=== PATIENT | female | born 1980 | race Caucasian/White ===

== ENCOUNTER → 2016-06-17 | Outpatient (CLI) | payer BC ==
--- NOTE | 2016-06-17 14:13 | DI ---
XR FOOT COMPLETE MIN 3VW WB,06/17/2016 12:54 PM: Clinical History: Left foot injury. Previous Exam: None at this facility. Findings: 3 views of the left foot are obtained, and demonstrate anatomic alignment without fractures. The surr ounding soft tissues are unremarkable. Impression: Normal left foot.
== END ==
LOC: MOB LAB 12:56
PROVIDERS: ATTEND Physician Assistant Medical
DX: M79.672 Pain in left foot (principal); S92.902A Unspecified fracture of left foot, initial encounter for closed fracture; W17.89XA Other fall from one level to another, initial encounter; Y93.02 Activity, running; Y92.480 Sidewalk as the place of occurrence of the external cause
CPT/HCPCS: 73630

== ENCOUNTER → 2016-06-24 | Outpatient (CLI) | payer BC ==
--- NOTE | 2016-06-24 10:05 | DI ---
XR FOOT COMPLETE MIN 3VW WB,06/24/2016 9:16 AM: Clinical History: Left foot pain Previous Exam: June 17, 2016 Findings: 3 views of the left foot are obtained, and demonstrate anatomic alignment without fractures. There ar e minimal degenerative changes of the left first metatarsophalangeal joint. The surrounding soft tissues are unremarkable. Impression: If there is concern for stress changes, consider bone scan of the left foot as some stress changes of the metatarsals can be radiographically silent.
== END ==
LOC: ORTHO 09:17
PROVIDERS: ATTEND Physician Assistant
DX: M79.672 Pain in left foot (principal); M19.072 Primary osteoarthritis, left ankle and foot; W17.89XA Other fall from one level to another, initial encounter
CPT/HCPCS: 73630